=== PATIENT | female | born 2000 | race Caucasian/White ===

== ENCOUNTER 2022-07-19 14:36 | Inpatient (IN) ==
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
[2022-07-19] MEDS ORDERED: LORazepam 1 MG TAB SL STA (15:07)
[2022-07-19 15:26] LABS: Basophils # (auto) 0.08 K/uL (0-0.2); Basophils % (auto) 0.7 %; Eosinophils # (auto) 0.09 K/uL (0-0.50); Eosinophils % (auto) 0.8 %; Hematocrit (blood only) 36.3 % (37.0-47.0); Hemoglobin 12.9 g/dl (12.0-16.0); Immature Granulocytes # (auto) 0.05 K/uL (0.01-0.20); Immature Granulocytes % (auto) 0.5 %; Lymphocytes # (auto) 2.76 K/uL (1.2-3.4); Lymphocytes % (auto) 25.3 %; Mean Corpuscular Hgb Conc 35.5 g/dL (32.0-36.0); Mean Corpuscular Volume 84.4 fL (80.0-100.0); Mean Platelet Volume 9.9 fL (9.4-12.4); Monocytes # (auto) 0.86 K/uL (0.11-0.59); Monocytes % (auto) 7.9 %; Neutrophils # (auto) 7.09 K/uL (1.40-6.50); Neutrophils % (auto) 64.8 %; Platelet Count 260 K/uL (130-400); RDW Coefficient of Variation 11.9 % (11.5-14.5); RDW Standard Deviation 35.9 fL (36.4-46.3); White Blood Count 10.93 K/ul (4.8-10.8)
[2022-07-19 15:45] LABS: Acetaminophen < 3 ug/ml (10-30); Salicylate < 3.0 mg/dl (3.0-30)
[2022-07-19 15:48] LABS: Appearance Urine Clear (Clear); Bilirubin Urine Negative (Negative); Blood Urine Negative (Negative); Color Urine Yellow; Glucose Urine UA Negative (Negative); Ketones Urine Negative (Negative); Leukocyte Esterase Urine Negative (Negative); Nitrite Urine Negative (Negative); Pregnancy Test, Urine Negative (Negative); Protein Urine Negative (Negative); Specific Gravity Urine 1.003 (1.000-1.030); Urobilinogen Urine Negative (Negative); pH Urine 6.5 (4.5-7.5)
[2022-07-19 15:52] LABS: Albumin Globulin Ratio 1.6 (0.9-2); Albumin Level 5.1 gm/dl (3.4-5.0); BUN Creatinine Ratio 13.4 (10-20); Bilirubin,Total 0.9 mg/dl (0.2-1.0); Calcium 9.7 mg/dl (8.5-10.1); Creatinine Clr Calc Pharmacy 102.4 ml/min; Est GFR (African American) 119.4 ml/min; Globulin 3.2 gm/dl (2.5-4.0); Potassium 3.6 mmol/L (3.5-5.1); Total Protein 8.3 gm/dl (6.0-8.3)
[2022-07-19 16:12] LABS: Amphetamines+Metham, Urine Neg (Neg); Barbiturates, Urine Neg (Neg); Benzodiazepine, Urine Neg (Neg); Cocaine, Urine Neg (Neg); MDMA (Ecstacy), Urine Neg (Neg); Methadone, Urine Neg (Neg); Opiate, Urine Neg (Neg); Phencyclidine, Urine Neg (Neg)
[2022-07-19] MEDS ORDERED: SODIUM CHLORIDE 0.9% 1000ML 1,000 ML IV ONE (17:18)
--- NOTE | 2022-07-19 17:19 | Electrocardiogram Report ---
Test Reason : Blood Pressure : / mmHG Vent. Rate : 104 BPM Atrial Rate : 104 BPM P-R Int : 168 ms QRS Dur : 072 ms QT Int : 328 ms P-R-T Axes : 049 023 039 degrees QTc Int : 431 ms Sinus tachycardia Possible Left atrial enlargement Abnormal ECG No previous ECGs available Confirmed by Angus Lisa ([id number]) on 07/19/2022 5:19:10 PM Referred By: REFERRED SELF Confirmed By:Louie Lisa
[2022-07-19] MEDS ORDERED: SODIUM CHLORIDE 0.9% 1000ML 500 ML IV ONE (19:03)
--- NOTE | 2022-07-19 19:47 | Emergency Department Note ---
ED Visit Note This patient is a 21-year-old female who is signed out to me at shift change by Dr. Alonzo at 747. At that time the patient had been medically cleared. He had talked to poison center and she had been observed over 8 hours after the ingestion and had 3 EKGs. She presently is at 201. She is being further evaluated by her psychiatric ed case manager. 3 S. did evaluate the patient is going to admit the patient voluntarily for further inpatient treatment and evaluation. .
[2022-07-20] MEDS ORDERED: ALUMINUM/MAGNESIUM SUSP 30 ML UDC PO PRN (00:40)
[2022-07-20] MEDS ORDERED: ACETAMINOPHEN 325 MG TAB PO PRN (00:40)
[2022-07-20] MEDS ORDERED: MAGNESIUM HYDROXIDE SUSP 30 ML UDC PO PRN (00:40)
[2022-07-20] MEDS ORDERED: SODIUM CHLORIDE 0.65% NA SOLN 45 ML (OCEAN) PRN (00:40)
[2022-07-20] MEDS ORDERED: hydrOXYzine HCl 25 MG TAB PO PRN (00:40)
[2022-07-20] MEDS ORDERED: BISMUTH SUBSALICYLATE LIQD 236 ML PO PRN (00:40)
--- NOTE | 2022-07-20 08:40 | History & Physical ---
Date of Service July 20, 2022 Impression / Recommendations Gracie Tracey is a 21 year old with a history of depression, BERNARD and likely ADHD who was admitted for suicide attempt. Diagnostically her presentation is most consistent with major depressive disorder with anxious features versus persistent depressive disorder as well as BERNARD and ADHD by history. The patient is deemed unstable and requires psychiatric hospitalization for diagnostic clarification, safety and stabilization, medication management and development of further coping skills. Discussed medication treatment options in detail. Discussed risks, benefits and alternatives. Patient would like to start and consented to sertraline for depression and anxiety. Reviewed side effects including but not limited to: GI, LUO, sexual side effects, and counseled on black box warning of potential for emergence of or increased SI and need to let staff know should this occur or should they feel unsafe. Also discussed importance of seeking emergency care following discharge if this side effect occurs in the future. She wants to continue with Adderall XR 5mg and consents to this and reviewed side effects including but not limited to: elevated HR/BP, increased anxiety, addictive potential, insomnia, appetite suppression. EKG reviewed and QTc within normal limits. (1) Suicide attempt: (2) MDD (major depressive disorder), recurrent episode, severe: (3) BERNARD (generalized anxiety disorder): (4) ADHD (attention deficit hyperactivity disorder): (5) Medication overdose: Encounter type: initial encounter Injury intent: intentional self-harm Qualified Code(s): T50.902A - Poisoning by unspecified drugs, medicaments and biological substances, intentional self-harm, initial encounter Plan 07/20/2022: The patient was admitted to the [facility] ([facility] mental health unit) on q15 min checks (behavioral with suicide precautions) for safety. The patient will participate in group, recreational, and milieu therapies and will be offered additional individual and family sessions as clinically appropriate. -start sertraline tomorrow at 25mg daily -Continue Adderall XR 5mg daily starting tomorrow -discontinue escitalopram Inventory Assets Strengths: supportive relationships, willing to get treatment Needs: safety and stabilization, medication adjustment, additional coping skills, increased outpatient services Suicide Risk Level Suicide Risk Level: High-Moderate (q15 min suicide checks) (suicide attempt prior to admission but feels safe in the hospital, able to safety contract and agrees to let nursing/staff know should they develop plan, intent or feel unable to remain safe.) Suicide Risk Level Comments: Risk Factors Assessment Male: No : Yes Do You Have Access To A Gun?: No Health Problems: No Mental Health Diagnoses: Yes Substance Use Disorders: No Previous Attempt: No Family History of Suicide: No Previous Psychiatric Hospitalization: No Protective Factors Assessment Employed: No Stable Relationships: Yes Psychiatric History Identifying Data JOHN CHILDRESS is a 21-year-old woman and [employer] who currently lives in off campus with a roommate, has a history of depression, BERNARD and likely ADHD, and was admitted on 07/20/22 00:40 on a 201 voluntary commitment for suicide attempt via escitalopram ingestion. Chief Complaint "I've kind of been adjusting to normal life since leaving my whole holiness community and that's been hard for me and I've been pretty suicidal since then". History of Present Illness She presents for psychiatric admission for worsening depression and suicide attempt via escitalopram overdose (she took 9 tabs of her 10mg escitalopram for estimated total dose of 95mg) in the context of multiple psychosocial stressors including a lot of recent transitions and losses. She has struggled to make friends since transitioning to [employer] [place] this fall, leaving her holiness community during the pandemic, breakup a year ago, and she felt more secluded yesterday as she wasn't involved in [employer] and had a fight/miscommunication with her boyfriend. She describes ongoing significant depression with suicidal thoughts beginning about a year ago and feels that her previous holiness beliefs are no longer a deterrent to acting on these thoughts. She has a lot of self-guilt and describes struggling with relationships as she feels she is "odd" and "unusual". She enjoys yoga, music, artwork, and is very creative. She endorses depressive symptoms including tearfulness, decreased motivation, self-guilt, helplessness, hopelessness, decreased energy, stable appetite, and decreased sleep with sleep onset insomnia and difficulty getting out of bed in the morning. She also endorses symptoms of anxiety including generalized worries, shakiness, easily overwhelmed but she isn't sure if she's ever had a panic attack. She is currently prescribed escitalopram 5mg daily (has been on since summer 2021) and Adderall XR 5mg daily (since summer 2021, she does feel this helps but gets overstimulated easily). Reviewed and confirmed recent history as documented by ED psych CM on 07/19/2022: "Met with patient to complete full psychiatric assessment. Patient seems to not fully grasp the seriousness of her overdose and need to receive inpatient treatment. After explaining seriousness of overdose attempt, patient is reluctantly agreeable to inpatient psychiatric treatment. She has no current outpatient providers and she believes her only formal diagnosis is of generalized anxiety disorder and ADHD. She is prescribed Lexapro and Adderall by her family doctor in [place]. Her biggest trigger right now is her leaving the oriental orth[employer] of her family, who are Evangelicals. They do not know that she has left the oriental orth[employer], but her older brother does. She states her father would have an "existential crisis" if he knew that she left the oriental orthodox as she has always been holiness and the "qiu child" of the family. She describes the events of today as having a "bad morning, bad mindset". She describes herself as generally happy despite stating that she has been depressed for years and thinking of for months. She does admit to moderate anxiety that she believes is provoked by overstimulation. States sleep and appetite are okay. History of SIB but not since middle school. Denies A/V hallucinations and HI. 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 History of self-harm as a teenager, none recently. History of eating disorder with skipping meals/restriction, no history of purging. Past Psychiatric History Current Psychiatric Diagnosis: Major depression Outpatient Services: none currently; history of therapy with [facility] for therapy, holiness support in the past Previous Psych Admissions: none Do You Have Access To A Gun?: No History of Previous Suicide Attempt: No Past Medication Trials: escitalopram (up to 10mg but made her feel like a zombie) Past Head Trauma/Neuro History History of Concussion/Seizure: No Allergies Allergy/AdvReac Type Severity Reaction Status Date / Time No Known Allergies Allergy Verified 07/20/22 10:37 Home Medications Medication Instructions Recorded Confirmed Type dextroamphetamine-amphetamine ER 5 5 mg PO DAILY 07/20/22 07/20/22 History mg 24hr capsule,extend release (Adderall XR) escitalopram oxalate 5 mg tablet 5 mg PO DAILY 07/20/22 07/20/22 History (Lexapro) Family History Family History of: Other-List under Comment (possible ADHD in her brother, paternal cousin with ASD) and Bipolar (paternal cousin) Alcohol History Hx of Alcohol Use Over the Past 12 Months: No AUDIT Total Score: 0 Smoking Use Have You Smoked or Used Tobacco Products in the Last 30 Days: No Smoking Status: Never smoker Substance History Hx of Prescription Med Misuse Over the Past 12 Months: No Hx of Over the Counter Med Misuse Over the Past 12 Months: No Hx of Inhalent Misuse Over the Past 12 Months: No Hx of Organic Substance Use Over the Past 12 Months: No Hx of Illegal Substances/Street Drug Use Over Past 12 Months: No Problems as a Result of Past Substance Use: None Identified Personal History Living Arrangements: Apartment Childhood: From near [place]. Highest Grade Completed: Some College Employment Status: Student ([employer] in [employer]) Marital Status: Single Number Of Children: 0 Beliefs That Will Affect Care: None Current Legal Problems: No Hx Legal Problems: No Hx Traumatic Life Events: Yes Patient History Social History Smoking Status: Never smoker Preferred Language: Emirati Communication Ability: Effective Disability Services Coordinator Required: No Beliefs That Will Affect Care: None Feels Safe at Home: Yes Gender Identity: Female Assistive Devices: Glasses Review of Systems Review of Systems: All systems reviewed & are unremarkable except as noted in HPI & below (headache) Physical Exam Psychiatric: Orientation: alert and oriented x 3 Apperance: appropriately dressed and appropriately groomed Eye Contact: good eye contact Motor Behavior: no abnormal motor movements Speech: + abnormal rate/rhythm/volume of speech (slightly latent) Affect: + depressed affect and + tearful affect Mood: + depressed mood and + anxious mood Thought Process: + circumstantial thought process Thought Content: reality based without delusions Suicidal Thoughts: denies suicidal thoughts (but attempt prior to admission), denies suicidal plan (but attempt prior to admission) and denies suicidal intent Homicidal Thoughts: denies homicidal thoughts Hallucinations: no auditory hallucinations and no visual hallucinations Cognition: recent memory grossly intact, remote memory grossly intact, attention grossly intact and language grossly intact Estimated Intelligence: consistent with education level Insight: + fair insight Judgment: + limited judgement Vital Signs (Past 24 Hours): Last Vital Signs Temp 37.0 C 07/19/22 14:36 Pulse 102 H 07/20/22 00:51 Resp 18 07/20/22 00:51 BP 109/65 07/20/22 00:51 Pulse Ox 98 07/20/22 00:51 O2 Del Method Room Air 07/20/22 00:51 Exam Statement: A physical exam was performed in the ED by Dr. Alonzo for the purposes of medical clearance. I accept that physical as correct and adequate for the purposes of the inpatient physical exam. Results & Data ([facility]) Laboratory Results Laboratory Results - last 24 hr 07/19/22 07/19/22 07/19/22 14:45 14:45 14:45 WBC RBC Hgb Hct MCV MCH MCHC RDW Std Deviation RDW Coeff of Jakob Plt Count MPV Immature Gran % (Auto) Neut % (Auto) Lymph % (Auto) [place] % (Auto) Eos % (Auto) Baso % (Auto) Neut # (Auto) Lymph # (Auto) [place] # (Auto) Eos # (Auto) Baso # (Auto) Immature Gran # (Auto) Sodium Potassium Chloride Carbon Dioxide Anion Gap BUN Creatinine Est Cr Clr Drug Dosing Est GFR ( Amer) Est GFR (Non-Af Amer) BUN/Creatinine Ratio Glucose Calcium Total Bilirubin AST ALT Alkaline Phosphatase Total Protein Albumin Globulin Albumin/Globulin Ratio TSH Urine Color Yellow Urine Appearance Clear Urine pH 6.5 Ur Specific [place] 1.003 Urine Protein Negative Urine Glucose (UA) Negative Urine Ketones Negative Urine Blood Negative Urine Nitrite Negative Urine Bilirubin Negative Urine Urobilinogen Negative Ur Leukocyte Esterase Negative Urine Test Negative Salicylates Urine Opiates Screen Neg Ur Methadone, Qual Neg Acetaminophen Urine Barbiturates Neg Ur Phencyclidine (PCP) Neg U Amphetamin/Meth Scrn Neg MDMA (Ecstasy) Screen Neg U Benzodiazepines Scrn Neg Ur Cocaine Metabolite Neg U Marijuana (THC) Screen Neg Ethyl Alcohol mg/dL SARS-CoV-2, RNA, NAAT 07/19/22 07/19/22 07/19/22 15:00 15:00 15:00 WBC 10.93 H RBC 4.30 Hgb 12.9 Hct 36.3 L MCV 84.4 MCH 30.0 MCHC 35.5 RDW Std Deviation 35.9 L RDW Coeff of Jakob 11.9 Plt Count 260 MPV 9.9 Immature Gran % (Auto) 0.5 Neut % (Auto) 64.8 Lymph % (Auto) 25.3 [place] % (Auto) 7.9 Eos % (Auto) 0.8 Baso % (Auto) 0.7 Neut # (Auto) 7.09 H Lymph # (Auto) 2.76 [place] # (Auto) 0.86 H Eos # (Auto) 0.09 Baso # (Auto) 0.08 Immature Gran # (Auto) 0.05 Sodium 137 Potassium 3.6 Chloride 105 Carbon Dioxide 25 Anion Gap 7 BUN 11 Creatinine 0.82 Est Cr Clr Drug Dosing 102.4 Est GFR ( Amer) 119.4 Est GFR (Non-Af Amer) 103.0 BUN/Creatinine Ratio 13.4 Glucose 96 Calcium 9.7 Total Bilirubin 0.9 AST 19 ALT 16 Alkaline Phosphatase 44 Total Protein 8.3 Albumin 5.1 H Globulin 3.2 Albumin/Globulin Ratio 1.6 TSH 2.505 Urine Color Urine Appearance Urine pH Ur Specific [place] Urine Protein Urine Glucose (UA) Urine Ketones Urine Blood Urine Nitrite Urine Bilirubin Urine Urobilinogen Ur Leukocyte Esterase Urine Test Salicylates Urine Opiates Screen Ur Methadone, Qual Acetaminophen Urine Barbiturates Ur Phencyclidine (PCP) U Amphetamin/Meth Scrn MDMA (Ecstasy) Screen U Benzodiazepines Scrn Ur Cocaine Metabolite U Marijuana (THC) Screen Ethyl Alcohol mg/dL SARS-CoV-2, RNA, NAAT 07/19/22 07/19/22 07/19/22 15:00 15:00 15:30 WBC RBC Hgb Hct MCV MCH MCHC RDW Std Deviation RDW Coeff of Jakob Plt Count MPV Immature Gran % (Auto) Neut % (Auto) Lymph % (Auto) [place] % (Auto) Eos % (Auto) Baso % (Auto) Neut # (Auto) Lymph # (Auto) [place] # (Auto) Eos # (Auto) Baso # (Auto) Immature Gran # (Auto) Sodium Potassium Chloride Carbon Dioxide Anion Gap BUN Creatinine Est Cr Clr Drug Dosing Est GFR ( Amer) Est GFR (Non-Af Amer) BUN/Creatinine Ratio Glucose Calcium Total Bilirubin AST ALT Alkaline Phosphatase Total Protein Albumin Globulin Albumin/Globulin Ratio TSH Urine Color Urine Appearance Urine pH Ur Specific [place] Urine Protein Urine Glucose (UA) Urine Ketones Urine Blood Urine Nitrite Urine Bilirubin Urine Urobilinogen Ur Leukocyte Esterase Urine Test Salicylates < 3.0 L Urine Opiates Screen Ur Methadone, Qual Acetaminophen < 3 L Urine Barbiturates Ur Phencyclidine (PCP) U Amphetamin/Meth Scrn MDMA (Ecstasy) Screen U Benzodiazepines Scrn Ur Cocaine Metabolite U Marijuana (THC) Screen Ethyl Alcohol mg/dL < 10.0 SARS-CoV-2, RNA, NAAT NEGATIVE Current Inpatient Medications Current Inpatient Medications: Current Inpatient Medications Acetaminophen (Acetaminophen 325 Mg Tab) 650 mg PO Q4H PRN PRN Reason: Headache or Minor Fever Stop: 08/19/22 00:39 Al Hydrox/Mg Hydrox/Simethicone (Aluminum/Magnesium Susp 30 Ml Udc) 30 ml PO Q4H PRN PRN Reason: GI Upset Stop: 08/19/22 00:39 Bismuth Subsalicylate (Bismuth Subsalicylate Liqd 236 Ml) 15 ml PO PRN PRN PRN Reason: Loose Stool Stop: 08/19/22 00:39 Hydroxyzine HCl (Hydroxyzine Hcl 25 Mg Tab) 25 mg PO Q4H PRN PRN Reason: Anxiety Stop: 08/19/22 00:39 Hydroxyzine HCl (Hydroxyzine Hcl 25 Mg Tab) 50 mg PO HSZ PRN PRN Reason: Insomnia Stop: 08/19/22 00:39 Magnesium Hydroxide (Magnesium Hydroxide Susp 30 Ml Udc) 30 ml PO DAILY PRN PRN Reason: Constipation Stop: 08/19/22 00:39 Sodium Chloride (Sodium Chloride 0.65% Na Soln 45 Ml ([place])) 1 - 2 sprays NA PRN PRN PRN Reason: Nasal Dryness/Congestion Stop: 08/19/22 00:39
--- NOTE | 2022-07-20 10:42 | Electrocardiogram Report ---
Test Reason : Blood Pressure : / mmHG Vent. Rate : 107 BPM Atrial Rate : 107 BPM P-R Int : 160 ms QRS Dur : 076 ms QT Int : 352 ms P-R-T Axes : 050 012 027 degrees QTc Int : 469 ms Sinus tachycardia Possible Left atrial enlargement Abnormal ECG When compared with ECG of 19-JUL-2022 15:28, No significant change was found Confirmed by Angus Lisa ([id number]) on 07/20/2022 10:41:50 AM Referred By: REFERRED SELF Confirmed By:Louie Lisa
--- NOTE | 2022-07-20 10:45 | Electrocardiogram Report ---
Test Reason : Blood Pressure : / mmHG Vent. Rate : 094 BPM Atrial Rate : 094 BPM P-R Int : 174 ms QRS Dur : 074 ms QT Int : 362 ms P-R-T Axes : 049 006 031 degrees QTc Int : 452 ms Normal sinus rhythm Possible Left atrial enlargement Abnormal ECG When compared with ECG of 19-JUL-2022 17:28, (unconfirmed) No significant change was found Confirmed by Angus Lisa ([id number]) on 07/20/2022 10:45:15 AM Referred By: REFERRED SELF Confirmed By:Louie Lisa
[2022-07-20] MEDS: hydrOXYzine HCl 25 MG TAB PO PRN (21:33)
--- NOTE | 2022-07-21 09:12 | Psychiatric Progress Note ---
Date of Service July 21, 2022 Impression / Recommendations Impression John is a 21 year old with a history of depression, BERNARD and likely ADHD who was admitted for suicide attempt. Diagnostically her presentation is most consistent with major depressive disorder with anxious features versus persistent depressive disorder as well as BERNARD and ADHD by history. The patient is deemed unstable and requires psychiatric hospitalization for diagnostic clarification, safety and stabilization, medication management and development of further coping skills. 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 Declined social work offers for referrals for psychiatrist and declined IOP but agreed to therapist referral and local PCP. Tolerating initial dose of sertraline. Prefers to hold Adderall while in the hospital. Spent time processing with her the phone call she had with her mother. (1) Suicide attempt: (2) MDD (major depressive disorder), recurrent episode, severe: (3) BERNARD (generalized anxiety disorder): (4) ADHD (attention deficit hyperactivity disorder): (5) Medication overdose: Plan 07/21/2022: Hold on Adderall XR during admission per her preference since not needing to do academic work. 07/20/2022: The patient was admitted to the [facility] ([facility] mental health unit) on q15 min checks (behavioral with suicide precautions) for safety. The patient will participate in group, recreational, and milieu therapies and will be offered additional individual and family sessions as clinically appropriate. -start sertraline tomorrow at 25mg daily -Continue Adderall XR 5mg daily starting tomorrow -discontinue escitalopram Inventory Assets Strengths: supportive relationships, willing to get treatment Needs: safety and stabilization, medication adjustment, additional coping skills, increased outpatient services Suicide Risk Level Suicide Risk Level: High-Moderate (q15 min suicide checks) (suicide attempt prior to admission but mood improving a little bit, feels safe in the hospital, able to safety contract and agrees to let nursing/staff know should they develop plan, intent or feel unable to remain safe.) Suicide Risk Level Comments: Risk Factors Assessment Male: No : Yes Do You Have Access To A Gun?: No Health Problems: No Mental Health Diagnoses: Yes Substance Use Disorders: No Previous Attempt: No Family History of Suicide: No Previous Psychiatric Hospitalization: No Protective Factors Assessment Employed: No Stable Relationships: Yes Interval History Identifying Information JOHN READINGER is a 21-year-old woman and [employer] who currently lives in off campus with a roommate, has a history of depression, BERNARD and likely ADHD, and was admitted on 07/20/22 00:40 on a 201 voluntary commitment for suicide attempt via escitalopram ingestion. Chief Complaint "I just called my mom so I'm kind of a mess". Review of Systems Sleep Information Total Hours of Sleep: 7 Sleep Comments: Meal Information Percent Meal Consumed - Breakfast: 100 Percent Meal Consumed - Lunch: 100 Percent Meal Consumed - Dinner: 100 Subjective Subjective Patient was seen & assessed and interval progress reviewed with treatment team nursing and social work. Participated in some groups yesterday but more withdrawn in the afternoon. Significant guilt and shame with ruminative thoughts. Today is very tearful after talking with her mom. Feels her mom is not very understanding or supportive and tried to problem solve rather than listen. She denies SI. No side effects from sertraline. Reviewed Adderall XR dose of 5mg not available in hospital and alternative dosing schedules or increased dose, she prefers to hold it since she isn't needing it for academics in the hospital. Declined IOP for further therapy support. Physical Exam Psychiatric Orientation: alert and oriented x 3 Apperance: appropriately dressed and appropriately groomed Eye Contact: good eye contact Motor Behavior: no abnormal motor movements Speech: normal rate/rhythm/volume of speech Affect: + depressed affect and + tearful affect Mood: + depressed mood and + anxious mood Thought Process: goal directed thought process Thought Content: reality based without delusions Suicidal Thoughts: denies suicidal thoughts (but attempt prior to admission), denies suicidal plan (but attempt prior to admission) and denies suicidal intent Homicidal Thoughts: denies homicidal thoughts Hallucinations: no auditory hallucinations and no visual hallucinations Cognition: recent memory grossly intact, remote memory grossly intact, attention grossly intact and language grossly intact Estimated Intelligence: consistent with education level Insight: + limited insight Judgment: + limited judgement Vital Signs (Past 24 Hours) Last Vital Signs Temp 36.9 C 07/21/22 06:46 Pulse 89 07/21/22 06:47 Resp 16 07/21/22 06:46 BP 104/64 07/21/22 06:47 Pulse Ox 98 07/20/22 00:51 O2 Del Method Room Air 07/20/22 00:51 Results & Data ([facility]) Current Inpatient Medications Current Inpatient Medications: Current Inpatient Medications Acetaminophen (Acetaminophen 325 Mg Tab) 650 mg PO Q4H PRN PRN Reason: Headache or Minor Fever Stop: 08/19/22 00:39 Al Hydrox/Mg Hydrox/Simethicone (Aluminum/Magnesium Susp 30 Ml Udc) 30 ml PO Q4H PRN PRN Reason: GI Upset Stop: 08/19/22 00:39 Bismuth Subsalicylate (Bismuth Subsalicylate Liqd 236 Ml) 15 ml PO PRN PRN PRN Reason: Loose Stool Stop: 08/19/22 00:39 Hydroxyzine HCl (Hydroxyzine Hcl 25 Mg Tab) 25 mg PO Q4H PRN PRN Reason: Anxiety Stop: 08/19/22 00:39 Hydroxyzine HCl (Hydroxyzine Hcl 25 Mg Tab) 50 mg PO HSZ PRN PRN Reason: Insomnia Stop: 08/19/22 00:39 Last Admin: 07/20/22 21:33 Dose: 50 mg Magnesium Hydroxide (Magnesium Hydroxide Susp 30 Ml Udc) 30 ml PO DAILY PRN PRN Reason: Constipation Stop: 08/19/22 00:39 Sodium Chloride (Sodium Chloride 0.65% Na Soln 45 Ml ([place])) 1 - 2 sprays NA PRN PRN PRN Reason: Nasal Dryness/Congestion Stop: 08/19/22 00:39 Mental Health & Subst Abuse Tx Therapist Name of Therapist: N/A Premium Note Interest Calculator Clerk Name of Premium Note Interest Calculator Clerk: N/A Post Discharge Appointments Primary Care Physician Name Of Family Doctor/PCP: Dr. Simpson (5) Medication overdose Encounter type: initial encounter Injury intent: intentional self-harm Qualified Code(s): T50.902A - Poisoning by unspecified drugs, medicaments and biological substances, intentional self-harm, initial encounter
[2022-07-21] MEDS ORDERED: SERTRALINE HCL 50 MG TABLET PO ONE (11:54)
[2022-07-21] MEDS: hydrOXYzine HCl 25 MG TAB PO PRN (21:37)
[2022-07-22] MEDS ORDERED: [UNRECOGNIZED DRUG - OTHER] PO SCH (09:00)
[2022-07-22] MEDS ORDERED: AMPHETAMINE PO SCH (09:00)
[2022-07-22] MEDS ORDERED: DEXTROAMPHETAMINE PO SCH (09:00)
--- NOTE | 2022-07-22 09:06 | Psychiatric Progress Note ---
Date of Service July 22, 2022 Impression / Recommendations Impression Kyung is a 21 year old with a history of depression, BERNARD and likely ADHD who was admitted for suicide attempt. Diagnostically her presentation is most consistent with major depressive disorder with anxious features versus persistent depressive disorder as well as BERNARD and ADHD by history. The patient is deemed unstable and requires psychiatric hospitalization for diagnostic clarification, safety and stabilization, medication management and development of further coping skills. 07/22/2022: Mood improving and no SI. Tolerating sertraline. Working on challenging cognitive distortions that lead to suicide attempt. (1) Suicide attempt: (2) MDD (major depressive disorder), recurrent episode, severe: (3) BERNARD (generalized anxiety disorder): (4) ADHD (attention deficit hyperactivity disorder): (5) Medication overdose: Plan 07/22/2022: Continue current medications and tx plan. 07/21/2022: Hold on Adderall XR during admission per her preference since not needing to do academic work. 07/20/2022: The patient was admitted to the [facility] ([facility] mental health unit) on q15 min checks (behavioral with suicide precautions) for safety. The patient will participate in group, recreational, and milieu therapies and will be offered additional individual and family sessions as clinically appropriate. -start sertraline tomorrow at 25mg daily -Continue Adderall XR 5mg daily starting tomorrow -discontinue escitalopram Inventory Assets Strengths: supportive relationships, willing to get treatment Needs: safety and stabilization, medication adjustment, additional coping skills, increased outpatient services Suicide Risk Level Suicide Risk Level: Moderate (q15 min suicide checks) (suicide attempt prior to admission but mood improving, feels safe in the hospital, able to safety contract and agrees to let nursing/staff know should they develop plan, intent or feel unable to remain safe.) Suicide Risk Level Comments: Risk Factors Assessment Male: No : Yes Do You Have Access To A Gun?: No Health Problems: No Mental Health Diagnoses: Yes Substance Use Disorders: No Previous Attempt: No Family History of Suicide: No Previous Psychiatric Hospitalization: No Protective Factors Assessment Employed: No Stable Relationships: Yes Interval History Identifying Information KYUNG CHILDRESS is a 21-year-old woman and [employer] who currently lives in off campus with a roommate, has a history of depression, BERNARD and likely ADHD, and was admitted on 07/20/22 00:40 on a 201 voluntary commitment for suicide attempt via escitalopram ingestion. Chief Complaint "I'm pretty good". Review of Systems Sleep Information Total Hours of Sleep: 7 Meal Information Percent Meal Consumed - Breakfast: 100 Percent Meal Consumed - Lunch: 100 Percent Meal Consumed - Dinner: 100 Subjective Subjective Patient was seen & assessed and interval progress reviewed with treatment team nursing and social work. Attending groups. At times has some anxious ruminations about infidelity with her last relationship but working on challenging cognitive distortions/over generalization and labeling related to this. Denies SI. No side effects from sertraline. Had support meeting with her best friend and brother. Physical Exam Psychiatric Orientation: alert and oriented x 3 Apperance: appropriately dressed and appropriately groomed Eye Contact: good eye contact Motor Behavior: no abnormal motor movements Speech: normal rate/rhythm/volume of speech Affect: euthymic affect Mood: + anxious mood Thought Process: goal directed thought process Thought Content: reality based without delusions Suicidal Thoughts: denies suicidal thoughts, denies suicidal plan and denies suicidal intent Homicidal Thoughts: denies homicidal thoughts Hallucinations: no auditory hallucinations and no visual hallucinations Cognition: recent memory grossly intact, remote memory grossly intact, attention grossly intact and language grossly intact Estimated Intelligence: consistent with education level Insight: + fair insight Judgment: + limited judgement Vital Signs (Past 24 Hours) Last Vital Signs Temp 37.1 C 07/22/22 06:44 Pulse 67 07/22/22 06:44 Resp 18 07/22/22 06:44 BP 101/65 07/22/22 06:46 Pulse Ox 98 07/20/22 00:51 O2 Del Method Room Air 07/20/22 00:51 Results & Data ([facility]) Current Inpatient Medications Current Inpatient Medications: Current Inpatient Medications Acetaminophen (Acetaminophen 325 Mg Tab) 650 mg PO Q4H PRN PRN Reason: Headache or Minor Fever Stop: 08/19/22 00:39 Al Hydrox/Mg Hydrox/Simethicone (Aluminum/Magnesium Susp 30 Ml Udc) 30 ml PO Q4H PRN PRN Reason: GI Upset Stop: 08/19/22 00:39 Bismuth Subsalicylate (Bismuth Subsalicylate Liqd 236 Ml) 15 ml PO PRN PRN PRN Reason: Loose Stool Stop: 08/19/22 00:39 Hydroxyzine HCl (Hydroxyzine Hcl 25 Mg Tab) 25 mg PO Q4H PRN PRN Reason: Anxiety Stop: 08/19/22 00:39 Hydroxyzine HCl (Hydroxyzine Hcl 25 Mg Tab) 50 mg PO HSZ PRN PRN Reason: Insomnia Stop: 08/19/22 00:39 Last Admin: 07/21/22 21:37 Dose: 50 mg Magnesium Hydroxide (Magnesium Hydroxide Susp 30 Ml Udc) 30 ml PO DAILY PRN PRN Reason: Constipation Stop: 08/19/22 00:39 Sodium Chloride (Sodium Chloride 0.65% Na Soln 45 Ml ([place])) 1 - 2 sprays NA PRN PRN PRN Reason: Nasal Dryness/Congestion Stop: 08/19/22 00:39 Mental Health & Subst Abuse Tx Therapist Name of Therapist: Gustavo Del Valle Chetan Therapist's Date of Therapist Appointment: 08/05/22 Time of Therapist Appointment: 2:30 PM Therapy Appointment Comment: Juanpablo Conner, [place], [place] Claims Analyst Name of Claims Analyst: N/A Post Discharge Appointments Primary Care Physician [facility] Date of Future Appointment with PCP: 09/01/22 Time of Appointment with PCP: 2:10 PM Provider Appointment Comment: Moshe [address], [place] [address] Contact Information Discharge Discharge Address: [address] [place] [address], [place] [address] (5) Medication overdose Encounter type: initial encounter Injury intent: intentional self-harm Qualified Code(s): T50.902A - Poisoning by unspecified drugs, medicaments and biological substances, intentional self-harm, initial encounter
[2022-07-22] MEDS: SERTRALINE HCL 50 MG TABLET PO SCH (09:52)
--- NOTE | 2022-07-23 08:55 | Discharge Summary ---
Date of Service July 23, 2022 History of Present Illness She presents for psychiatric admission for worsening depression and suicide attempt via escitalopram overdose (she took 9 tabs of her 10mg escitalopram for estimated total dose of 95mg) in the context of multiple psychosocial stressors including a lot of recent transitions and losses. She has struggled to make friends since transitioning to [employer] this fall, leaving her baptism community during the pandemic, breakup a year ago, and she felt more secluded yesterday as she wasn't involved in [employer] and had a fight/miscommunication with her boyfriend. She describes ongoing significant depression with suicidal thoughts beginning about a year ago and feels that her previous baptism beliefs are no longer a deterrent to acting on these thoughts. She has a lot of self-guilt and describes struggling with relationships as she feels she is "odd" and "unusual". She enjoys yoga, music, artwork, and is very creative. She endorses depressive symptoms including tearfulness, decreased motivation, self-guilt, helplessness, hopelessness, decreased energy, stable appetite, and decreased sleep with sleep onset insomnia and difficulty getting out of bed in the morning. She also endorses symptoms of anxiety including generalized worries, shakiness, easily overwhelmed but she isn't sure if she's ever had a panic attack. She is currently prescribed escitalopram 5mg daily (has been on since summer 2021) and Adderall XR 5mg daily (since summer 2021, she does feel this helps but gets overstimulated easily). Reviewed and confirmed recent history as documented by ED psych CM on 07/19/2022: "Met with patient to complete full psychiatric assessment. Patient seems to not fully grasp the seriousness of her overdose and need to receive inpatient treatment. After explaining seriousness of overdose attempt, patient is reluctantly agreeable to inpatient psychiatric treatment. She has no current outpatient providers and she believes her only formal diagnosis is of generalized anxiety disorder and ADHD. She is prescribed Lexapro and Adderall by her family doctor in [facility]. Her biggest trigger right now is her leaving the gnosticism of her family, who are Evangelicals. They do not know that she has left the gnosticism, but her older brother does. She states her father would have an "existential crisis" if he knew that she left the gnosticism as she has always been baptism and the "qiu child" of the family. She describes the events of today as having a "bad morning, bad mindset". She describes herself as generally happy despite stating that she has been depressed for years and thinking of for months. She does admit to moderate anxiety that she believes is provoked by overstimulation. States sleep and appetite are okay. History of SIB but not since middle school. Denies A/V hallucinations and HI. 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 History of self-harm as a teenager, none recently. History of eating disorder with skipping meals/restriction, no history of purging. Physical Exam Vital Signs (Past 24 Hours) Last Vital Signs Temp 37 C 07/23/22 06:42 Pulse 92 H 07/23/22 06:43 Resp 16 07/23/22 06:42 BP 95/56 L 07/23/22 06:43 Pulse Ox 98 07/20/22 00:51 O2 Del Method Room Air 07/20/22 00:51 See admission H&P and DOD summary. Principal Diagnosis Major Depressive Disorder Psychiatric Data See daily stay summary. In short, patient was engaged with the social/therapeutic milieu of the unit, safety was maintained and the patient was cooperative with care. Medication changes included discontinuation of escitalopram and initiation of sertraline 25mg daily for depression and anxiety and Vistaril 50mg hs prn for insomnia/anxiety and they tolerated this well. Sertraline could be further titrated to 50mg daily in the future based on symptom improvement/tolerability. A support session was held and safety plan was completed prior to discharge. She actively participated in safety planning and in discussions about ways to seek support and recognizing warning signs and utilizing coping skills. Reviewed mobile apps that could be used for additional ways to have their safety plan and contacts easily available should thoughts of SI re-emerge in the future. Reviewed importance of seeking emergency care should SI intensify, worsen or should they feel unsafe in the future which they agree to do. On the day of discharge she stated her mood was "pretty good", "excited to go outside" and remained future-oriented including seeing her roommate, going home to visit her family and boyfriend for the weekend and engaging in aftercare appointments for therapy and [employer] student care and advocacy. Day of Discharge Assessment Today the patient voices readiness for discharge. They note improvement in mood and anxiety. They deny thoughts of harm to self or others. Thoughts are organized and they are clinically improved from admission. There is no evidence of psychosis. They improved in the hospital with support and medication adjustments. They agree to take medications as prescribed and keep follow-up appointments. At the time of the discharge they are deemed to be stable and appropriate for outpatient level of care. They are not deemed to be at imminent risk of harm to self or others. They are aware of emergency and crisis services. Knows to call 911 or go to nearest emergency care center if in a crisis which cannot be handled as an outpatient. Transition of Care Transition Of Care Record: was reviewed with the patient Advance Directives Advance Directives Information Provided: Yes Advance Directives: No Mental Health Advance Directive: No Advance Directives on File: No Living Will: No Power of Plate Drying Machine Tender: No Advance Directives Reason:: Declines as Mental Health Visit. Suicide Risk Level Suicide Risk Level Comments: Acute risk is low given improvement in mood and denial of SI, lack of access to lethal means, improvement in sleep, hopefulness. Chronic risk is moderate given some non-modifiable risk factors: psychiatric co-morbid diagnoses, periods of impulsivity, prior attempt, emotional reactivity,childhood trauma but also with protective factors including employed/student, good social support, sense of responsibility to family and social supports, outpatient care in place, positive coping skills, positive problem solving, capacity to establish therapeutic alliance, capacity for self-observation. Counseled on ways to reduce acute and chronic risk including engaging with outpatient providers, using safety plan if needed, utilizing supports, taking medication, and using coping skills. Modifiable risk factors of SI and depression were addressed during hospitalization through development of new coping skills, support meeting, safety planning, and medication adjustments. Risk Factors Assessment Male: No : Yes Do You Have Access To A Gun?: No Health Problems: No Mental Health Diagnoses: Yes Substance Use Disorders: No Previous Attempt: Yes Family History of Suicide: No Previous Psychiatric Hospitalization: No Hopelessness: No Protective Factors Assessment Employed: No Stable Relationships: Yes Supportive Family: Yes Discharge Data Lab Results 07/19/22 07/19/22 07/19/22 14:45 14:45 14:45 WBC RBC Hgb Hct MCV MCH MCHC RDW Std Deviation RDW Coeff of Jakob Plt Count MPV Immature Gran % (Auto) Neut % (Auto) Lymph % (Auto) Lanier % (Auto) Eos % (Auto) Baso % (Auto) Neut # (Auto) Lymph # (Auto) Lanier # (Auto) Eos # (Auto) Baso # (Auto) Immature Gran # (Auto) Sodium Potassium Chloride Carbon Dioxide Anion Gap BUN Creatinine Est Cr Clr Drug Dosing Est GFR ( Amer) Est GFR (Non-Af Amer) BUN/Creatinine Ratio Glucose Calcium Total Bilirubin AST ALT Alkaline Phosphatase Total Protein Albumin Globulin Albumin/Globulin Ratio TSH Urine Color Yellow Urine Appearance Clear Urine pH 6.5 Ur Specific [place] 1.003 Urine Protein Negative Urine Glucose (UA) Negative Urine Ketones Negative Urine Blood Negative Urine Nitrite Negative Urine Bilirubin Negative Urine Urobilinogen Negative Ur Leukocyte Esterase Negative Urine Test Negative Salicylates Urine Opiates Screen Neg Ur Methadone, Qual Neg Acetaminophen Urine Barbiturates Neg Ur Phencyclidine (PCP) Neg U Amphetamin/Meth Scrn Neg MDMA (Ecstasy) Screen Neg U Benzodiazepines Scrn Neg Ur Cocaine Metabolite Neg U Marijuana (THC) Screen Neg Ethyl Alcohol mg/dL SARS-CoV-2, RNA, NAAT 07/19/22 07/19/22 07/19/22 15:00 15:00 15:00 WBC 10.93 H RBC 4.30 Hgb 12.9 Hct 36.3 L MCV 84.4 MCH 30.0 MCHC 35.5 RDW Std Deviation 35.9 L RDW Coeff of Jakob 11.9 Plt Count 260 MPV 9.9 Immature Gran % (Auto) 0.5 Neut % (Auto) 64.8 Lymph % (Auto) 25.3 Lanier % (Auto) 7.9 Eos % (Auto) 0.8 Baso % (Auto) 0.7 Neut # (Auto) 7.09 H Lymph # (Auto) 2.76 Lanier # (Auto) 0.86 H Eos # (Auto) 0.09 Baso # (Auto) 0.08 Immature Gran # (Auto) 0.05 Sodium 137 Potassium 3.6 Chloride 105 Carbon Dioxide 25 Anion Gap 7 BUN 11 Creatinine 0.82 Est Cr Clr Drug Dosing 102.4 Est GFR ( Amer) 119.4 Est GFR (Non-Af Amer) 103.0 BUN/Creatinine Ratio 13.4 Glucose 96 Calcium 9.7 Total Bilirubin 0.9 AST 19 ALT 16 Alkaline Phosphatase 44 Total Protein 8.3 Albumin 5.1 H Globulin 3.2 Albumin/Globulin Ratio 1.6 TSH 2.505 Urine Color Urine Appearance Urine pH Ur Specific [place] Urine Protein Urine Glucose (UA) Urine Ketones Urine Blood Urine Nitrite Urine Bilirubin Urine Urobilinogen Ur Leukocyte Esterase Urine Test Salicylates Urine Opiates Screen Ur Methadone, Qual Acetaminophen Urine Barbiturates Ur Phencyclidine (PCP) U Amphetamin/Meth Scrn MDMA (Ecstasy) Screen U Benzodiazepines Scrn Ur Cocaine Metabolite U Marijuana (THC) Screen Ethyl Alcohol mg/dL SARS-CoV-2, RNA, NAAT 07/19/22 07/19/22 07/19/22 15:00 15:00 15:30 WBC RBC Hgb Hct MCV MCH MCHC RDW Std Deviation RDW Coeff of Jakob Plt Count MPV Immature Gran % (Auto) Neut % (Auto) Lymph % (Auto) Lanier % (Auto) Eos % (Auto) Baso % (Auto) Neut # (Auto) Lymph # (Auto) Lanier # (Auto) Eos # (Auto) Baso # (Auto) Immature Gran # (Auto) Sodium Potassium Chloride Carbon Dioxide Anion Gap BUN Creatinine Est Cr Clr Drug Dosing Est GFR ( Amer) Est GFR (Non-Af Amer) BUN/Creatinine Ratio Glucose Calcium Total Bilirubin AST ALT Alkaline Phosphatase Total Protein Albumin Globulin Albumin/Globulin Ratio TSH Urine Color Urine Appearance Urine pH Ur Specific [place] Urine Protein Urine Glucose (UA) Urine Ketones Urine Blood Urine Nitrite Urine Bilirubin Urine Urobilinogen Ur Leukocyte Esterase Urine Test Salicylates < 3.0 L Urine Opiates Screen Ur Methadone, Qual Acetaminophen < 3 L Urine Barbiturates Ur Phencyclidine (PCP) U Amphetamin/Meth Scrn MDMA (Ecstasy) Screen U Benzodiazepines Scrn Ur Cocaine Metabolite U Marijuana (THC) Screen Ethyl Alcohol mg/dL < 10.0 SARS-CoV-2, RNA, NAAT NEGATIVE Hospital Course (1) Suicide attempt: (2) MDD (major depressive disorder), recurrent episode, severe: (3) BERNARD (generalized anxiety disorder): (4) ADHD (attention deficit hyperactivity disorder): (5) Medication overdose: Plan 07/22/2022: Continue current medications and tx plan. 07/21/2022: Hold on Adderall XR during admission per her preference since not needing to do academic work. 07/20/2022: The patient was admitted to the [facility] ([facility] mental health unit) on q15 min checks (behavioral with suicide precautions) for safety. The patient will participate in group, recreational, and milieu therapies and will be offered additional individual and family sessions as clinically appropriate. -start sertraline tomorrow at 25mg daily -Continue Adderall XR 5mg daily starting tomorrow -discontinue escitalopram Mental Health & Subst Abuse Tx Therapist Name of Therapist: Gustavo Fonseca - [facility] Therapist's Date of Therapist Appointment: 08/05/22 Time of Therapist Appointment: 2:30 PM Therapy Appointment Comment: Juanpablo Conner, [place], [place] Wool Spotter Name of Wool Spotter: Student Care and Advocacy Phone Number for Wool Spotter: [phone] Date of Appointment with Wool Spotter: 06/25/22 Time of Appointment with Wool Spotter: 12:45pm Case Management Appointment Comment: Zoom link will be sent to [employer] email Post Discharge Appointments Primary Care Physician Name Of Family Doctor/PCP: [facility] Date of Future Appointment with PCP: 09/01/22 Time of Appointment with PCP: 2:10 PM Provider Appointment Comment: Moshe [address], [place] [address] Contact Information Discharge Discharge Address: [address] [place] [address], [place] [address] Discharge Plan Discharge Items Patient Disposition: Home - Self-Care Reason For Visit: SI WITH OD Discharge Diagnosis: Major Depressive Disorder Activity: Resume your previous activity Non-emergency contact: Primary Care Provider and Therapist Call non-emergency contact if: you have any medication questions and your symptoms worsen Follow-up/Referrals: Ricci Reyes MD [Primary Care Provider] - Diet: Regular Addtl Attending Provider Instructions: Optional mobile apps we discussed: -Suicide safety plan -Virtual Hope Box -Panic Crystalizer Tender SPECIAL CARE INSTRUCTIONS: 1. Follow through with your scheduled aftercare appointments. If unable to keep an appointment, please call to reschedule. 2. Take your medication only as prescribed. Medication should not be changed or stopped without the approval of your doctor. In the event of worsening symptoms or concerns about side effects, contact your doctor immediately. 3. Utilize new healthy coping skills, anger management skills, and stress management skills learned during your hospitalization. Journal feelings and process them with a support person. Identify stressors or situations that may result in relapse, deterioration or inappropriate behaviors and develop a plan to deal with those issues. 4. If your coping skills are ineffective and you are in crisis, contact your outpatient providers for direction. If unable to reach your providers, please call the [facility] CRISIS LINE AT , go to the [facility] walk-in center at [address], [address], [place], or go to the closest Emergency Room. 5. Avoid alcohol and un-prescribed drugs. 6. You have been provided with the Mental Health Advance Directives Pamphlet for your review. 7. Your condition is stable for discharge to outpatient level of care, but recovery is an ongoing process. Ifthoughts to harm yourself or others return, follow the safety plan developed during your stay. Planning for a safe return home includes securing weapons. Our treatment team recommends weaponsbe removed from the home until your outpatient provider reassesses your progress. In rare cases where the items themselvescannot be removed, guns and ammunitionshould be secured separatelyand keys stored by a reliable personoutside of the home. If you were admitted on an involuntary commitment, the police or other legal authorities may be involved in this process. AFTERCARE APPOINTMENTS: * Please call your insurance company prior to your scheduled appointment to confirm your aftercare providers are covered. Take your insurance information to your appointments. WHO TO CALL AND WHEN: Medical Emergencies: For questions or emergencies related to your hospital stay, please contact the Inpatient Behavioral Health Unit at [phone]. A packaging technician is on-call 20/12 for the Behavioral Health Unit for emergencies At any time you feel your situation is an emergency, you may also call 911 immediately. Pending Studies at Discharge: No Stand-Alone Forms: My [facility] Medications and DC Order Prescriptions: New hydroxyzine HCl 50 mg tablet 50 mg PO HS PRN (Reason: insomnia/anxiety) 30 Days Qty: 7 0RF sertraline 25 mg tablet 25 mg PO DAILY 15 Days Qty: 15 2RF Continued dextroamphetamine-amphetamine [Adderall XR] 5 mg Capsule,Extended Release 24hr 5 mg PO DAILY Discontinued escitalopram oxalate [Lexapro] 5 mg Tablet 5 mg PO DAILY Discharge Orders: Discharge Order (Routine); Ordered 07/23/22 Ordered By: Teressa Valdez Admission Data Admit Date/Time: 07/20/22 00:40 Attending Provider: Teressa Valdez Admit Provider: Teressa Valdez Primary Care Provider: Ricci Reyes Other Interventions: Discharge Summary Assessment (RN) Last Done: 07/23/22 10:43 PSY Interdisciplinary Discharge Planning Last Done: 07/23/22 10:43 Coding Level of Care Code 88850 D/C day mgmt > 30 min Diagnoses Suicide attempt T14.91XA MDD (major depressive disorder), recurrent episode, severe F33.2 BERNARD (generalized anxiety disorder) F41.1 ADHD (attention deficit hyperactivity disorder) F90.9 Medication overdose T50.902A Encounter type: initial encounter Injury intent: intentional self-harm Time Spent (min) 35
[2022-07-23] MEDS: SERTRALINE HCL 50 MG TABLET PO SCH (09:09)
== END 2022-07-23 12:07 | disposition home or self-care (01) | DRG 918 ==
LOC: ED 14:36 → 3S 07-20 00:35